=== PATIENT | female | born 1980 | race Caucasian/White ===

== ENCOUNTER 2018-12-30 15:32 | Inpatient (IN) | payer OTHER ==
[~2018-12-30] VITALS: Ht 167.6 cm; Wt 131.1 kg
[2018-12-30 16:36] VITALS: Ht 167.6 cm; Wt 131.1 kg
[2018-12-30] MEDS ORDERED: PREN-93 PO (16:37)
[2018-12-30] MEDS ORDERED: MISOPROSTOL 200 MCG TAB PR PRN (17:00)
[2018-12-30] MEDS ORDERED: OXYTOCIN 30 UNITS/LR 500 ML IV SCH (17:00)
[2018-12-30] MEDS ORDERED: OXYTOCIN 30 UNITS/LR 500 ML IV PRN (17:00)
[2018-12-30] MEDS ORDERED: CARBOPROST 250 MCG INJ IM PRN (17:00)
[2018-12-30] MEDS ORDERED: CEFAZOLIN 3 GM in DEXTROSE 5% 100 ML IV SCH (17:00)
[2018-12-30] MEDS ORDERED: METHYLERGONOVINE 0.2 MG INJ IM PRN (17:00)
[2018-12-30] MEDS: LACTATED RINGER'S 1,000 ML IV SCH ×3 (17:58→23:18)
--- NOTE | 2018-12-30 18:10 | HP ---
Date/Time of Note Date/Time of Note DATE: 12/30/18 TIME: 17:55 OB - History Hx of Present Free Text/Dictation 12/30/2018 : 4 Para: 2 Care: Limited Care Other Concerns: 38 years old with IUP at 36 weeks and 1 day with history of pre- gestational diabetes, poorly controlled, hydramnios and LGA, as well as history of x2, presented to hospital with complaint of contractions. Patient denies any leaking of fluid or vaginal bleeding or decreased movement. Has not been compliant with checking her blood sugar Patient had limited visits with multiple OB providers but was not compliant with continue care. She was admitted due to contractions. Cervical exam: Closed/long and high Patient reports had been seen in [facility] last week and had ultrasound. reports unavailable.Per patient was discharged from Dr. rabia acosta's practice due to being non compliant Patient will be admitted for observation, hydration, management of blood sugar, perinatology consultation and possible section in case of evidence of labor Patient is morbidly obese. Past Family/Social History * Past Medical, Surgical, Family and Obstetric Histories reviewed from chart. Blood Type: O+ Rubella: immune RPR/VDRL: Negative GBS Status: Unknown HBsAG: Negative OB Admission Exam Physical Exam HEENT: WNL Lungs: Clear Abdomen: WNL Reflexes: Normal Cervical Dilatation: None Effacement: 0% Station: -2 Membranes: Intact Accelerations: Accelerations Present Varibility: Moderate Contractions on Admission: < 5 Minutes Apart Intensity: Mild Last 72 hours Lab Results CBC & BMP 12/30/18 17:06 OB Assessment/Plan Other Assessment: IUP at 36 weeks and 1 day Pre-gestational diabetes, poorly controlled Polyhydramnios History of x2 Poor care Morbidly obese Contractions, patient does not appear to to be in acute distress, likely combination of dehydration and polyhydramnios Patient will be admitted in-house Keep the patient n.p.o. IV fluid hydration Management of blood sugar by insulin sliding scale Perinatology/neonatology consultation If evidence of labor, delivered by section CBC type and screen Continuous monitoring Plan of care discussed with RN and with the patient Consented for possible section in case of painful contractions Risks and benefits of section including risk for infection, bleeding, damage to adjacent structure including bowel and bladder and risks for blood transfusion including risk for blood borne infection, HIV, Hepatitis B and c and transfusion discussed. All questions were answered. Patient verbalized understanding all above risks JACKIE LUCAS MD Dec 30, 2018 18:05
[2018-12-30] MEDS ORDERED: NPH,100I5 SQ ×2 (18:30→18:33)
[2018-12-30] MEDS ORDERED: INSU100C SQ (18:34)
[2018-12-30] MEDS ORDERED: ONDANSETRON 4 MG INJ IV STA (22:12)
[2018-12-30] MEDS ORDERED: AZITHROMYCIN 500MG/NS (PMX) 250 ML IVPB ONE (22:30)
[2018-12-30] MEDS ORDERED: METOCLOPRAMIDE 10 MG INJ IV ONE (22:30)
--- NOTE | 2018-12-30 22:51 | PREAC ---
Date/Time of Note Date/Time of Note DATE: 12/30/18 TIME: 22:50 Anesthesia Eval and Record Evaluation Time Pre-Procedure Interview DATE: 12/30/18 TIME: 22:50 Age 38 Sex female NPO: 8 hrs Preoperative diagnosis Planned procedure repeat c/s Past Medical History Past Medical History: Includes GI: Morbid obesity Surgery & Anesthesia Issues No known issue Meds Anticoagulation: No Beta Yolanda within 24 hr: No Reason Beta Yolanda not given: Pt. not on B-Yolanda Reported Medications Insulin Lispro (Humalog) 100 Unit/1 Ml Cartridge, 36 UNIT SQ PC DINNER, EA 12/30/18 NPH, Human Insulin Isophane (Humulin N Kwikpen) 100 Unit/1 Ml Insuln.pen, 37 UNIT SQ PC LUNCH DINNER, EA 12/30/18 NPH, Human Insulin Isophane (Humulin N Kwikpen) 100 Unit/1 Ml Insuln.pen, 47 UNIT SQ AC A, EA 12/30/18 Vit No.124/Iron/FA ( Vitamin Tablet) 1 Each Tablet, 1 EACH PO, TAB 12/30/18 Current Medications Lactated Ringer's 1,000 ml @ 125 mls/hr Q8H IV Last administered on 12/30/18at 19:49; Admin Dose 125 MLS/HR; Start 12/30/18 at 16:56 Cefazolin Sodium 3 gm/Dextrose 100 ml @ 100 mls/hr ONCE IV ; Start 12/30/18 at 17:00 Oxytocin/Lactated Ringer's 500 ml @ 125 mls/hr POST IV ; Start 12/30/18 at 17:00 Oxytocin/Lactated Ringer's 500 ml @ 0 mls/hr ONCE PRN IV .VAGINAL BLEEDING; Start 12/30/18 at 17:00 Methylergonovine Maleate (Methergine) 0.2 mg ONCE PRN IM .VAGINAL BLEEDING; Start 12/30/18 at 17:00 Carboprost Tromethamine (Hemabate) 250 mcg ONCE PRN IM .VAGINAL BLEEDING; Start 12/30/18 at 17:00 Misoprostol (Cytotec) 1,000 mcg ONCE PRN [place] .VAGINAL BLEEDING; Start 12/30/18 at 17:00 Azithromycin 250 ml @ 250 mls/hr ONCE ONCE IVPB ; Start 12/30/18 at 22:30; Stop 12/30/18 at 23:29 Meds reviewed: Yes Allergies Coded Allergies: No Known Allergy (Unverified , 12/30/18) Allergies Reviewed: Yes Labs/Studies Labs Reviewed: Reviewed by anesthesiologist Result Diagram: 12/30/18 1706 12/30/18 1705 Laboratory Tests 12/30/18 17:05 12/30/18 17:06 Blood Bank Test 12/30/18 17:06 Antibody Screen NEGATIVE Blood Type O POSITIVE Rh Immune Globulin Candidate NO test: Positive Pre-procedure Exam Airway: Adequate mouth opening, Adequate thyromental dist Mallampati: Mallampati II Teeth: Normal Lung: Normal Heart: Normal ASA Physical Status ASA physical status: 2 Emergency: None Planned Anesthetic Neuraxial: Spinal Planned Pain Management Sub-arachniod narcotics Pre-operative Attestations Prior to commencing anesthesia and surgery, the patient was re-evaluated, there was verification of: *The patient's identity *The results of appropriate recent lab work and preoperative vital signs *The above evaluation not changing prior to induction *Anesthetic plan, risk benefits, alternative and complications discussed with patient/family; questions answered; patient/family understands, accepts and wishes to proceed. HUGH CANTU Dec 30, 2018 22:51
[2018-12-30] MEDS ORDERED: ALBUTEROL 0.083% (NEB) 2.5 MG/3 ML AMP HHN PRN (23:00)
[2018-12-30] MEDS ORDERED: HYDROmorphONE 0.5 MG/0.5 ML SYG IV PRN (23:00)
[2018-12-30] MEDS ORDERED: ONDANSETRON 4 MG INJ IV PRN ×2 (23:00)
[2018-12-30] MEDS ORDERED: FENTAnyl 50 MCG/ML VIAL IV PRN ×2 (23:00)
[2018-12-30] MEDS ORDERED: NALOXONE (0.4 MG/ML) INJ IV PRN (23:00)
[2018-12-30] MEDS ORDERED: DIPHENHYDRAMINE 50 MG INJ IV PRN ×2 (23:00)
[2018-12-30] MEDS ORDERED: METOCLOPRAMIDE 10 MG INJ IV PRN (23:00)
[2018-12-30] MEDS ORDERED: HYDROmorphONE 1 MG/5 ML IV SYRINGE IV PRN ×3 (23:00)
[2018-12-30] MEDS ORDERED: KETOROLAC 30 MG INJ IV PRN (23:00)
--- NOTE | 2018-12-31 02:26 | PAC ---
Date/Time of Note Date/Time of Note DATE: 12/31/18 TIME: 02:26 Post-Anesthesia Notes Post-Anesthesia Note Activity: WNL Respiratory function: WNL Cardiovascular function: WNL Mental status: Baseline Pain reasonably controlled: Yes Hydration appropriate: Yes Nausea/Vomiting absent: Yes HUGH ACNTU Dec 31, 2018 02:26
--- NOTE | 2018-12-31 02:33 | OPPN ---
Date/Time of Note Date/Time of Note DATE: 12/31/18 TIME: 02:23 Operative Report Planned Procedure Procedure date Dec 31, 2018 Procedure(s) RLTC/S lysis of adhesion Performed by see signature line Burn Table Operator: JENARO TREVIÑO MD 2nd Burn Table Operator none Anesthesiologist: HUGH CANTU Pre-procedure diagnosis [id number] with x2 previous c/s in labor GDM [id number] Anesthesia Type: Erkod3b spinal Post-Procedure Post-procedure diagnosis same as above deliveredpreterm normal female Findings Live Baby [f], Apgars [8 ] and 9[], weight 9lb 13oz[], position lot [], [vx] presentation none[]cord. Estimated Blood Loss: 500 - 600 mls Specimen(s) none Grafts/Implant(s) none Complication(s) none FREDERICK WALKER MD Dec 31, 2018 02:33
[2018-12-31] MEDS ORDERED: LACTATED RINGER'S 1,000 ML IV SCH (04:58)
[2018-12-31 05:00] VITALS: BP 135/72; PULSE 59; RESP 18
[2018-12-31] MEDS ORDERED: ZOLPIDEM 5 MG TAB PO PRN (05:00)
[2018-12-31] MEDS ORDERED: OXYTOCIN 30 UNITS/LR 500 ML IV PRN (05:00)
[2018-12-31] MEDS ORDERED: METHYLERGONOVINE 0.2 MG INJ IM PRN (05:00)
[2018-12-31] MEDS ORDERED: CARBOPROST 250 MCG INJ IM PRN (05:00)
[2018-12-31] MEDS ORDERED: LANOLIN HPA 1 PKT TOP PRN (05:00)
[2018-12-31] MEDS ORDERED: DIPHENHYDRAMINE 50 MG INJ IV PRN (05:00)
[2018-12-31] MEDS ORDERED: ONDANSETRON 4 MG INJ IV PRN (05:00)
[2018-12-31] MEDS ORDERED: MISOPROSTOL 200 MCG TAB PR PRN (05:00)
[2018-12-31 06:00] VITALS: BP 132/72; PULSE 65; RESP 20
--- NOTE | 2018-12-31 07:52 | OPR ---
DATE OF OPERATION: 12/31/2018 PREOPERATIVE DIAGNOSES: 36 weeks 1 day with 2 previous sections, in labor, and GD M. POSTOPERATIVE DIAGNOSES: 36 weeks 1 day with 2 previous sections, in labor, and G DM. Delivered normal macrosomic female . Omental adhesion. OPERATION PERFORMED: Repeat low transverse section, lysis of adhesion. ANESTHESIOLOGIST: Remy Johnson M.D. SURGEON: Jon Rodriguez M.D. BILL CLERK: Dr. Meyres ESTIMATED BLOOD LOSS: Approximately 600 mL. FINAL SPONGE COUNT: Correct. PROCEDURE: Under proper induction of spinal anesthesia, the patient was placed in the frog position. Duncan catheter was introduced under sterile condition, repositioned to supine. Abdominal wall was prepped and draped in usual aseptic manner. A transverse incision was made along the previous incisi onal scar and incision was carried down through the subcutaneous tissue to the anterior recti fascia, which was incised transversely in length of the incision. Fascial flap was created by blunt and sha rp dissection cephalad and then 2 rectus muscles split and peritoneal cavity was entered. Upon enter ing the peritoneal cavity, there were some omental adhesion noted on the parietal peritoneum, which w as initially pushed away and the low portion of uterus was exposed and found to be vertex presentatio n. An incision was made above the uterovesical reflection layer by layer, reached the amniotic membr ane, which was ruptured to reveal severe polyhydramnios gushed out clear fluid and normal fem smitha was born from the left occiput transverse position. Mouth and nose were cleaned and delayed clam ping done and cut, handed to the respiratory care personnel for further care. Cord blood was obtaine d. Placenta was removed manually. Uterus was exteriorized and cavity was completely cleaned. Uteri ne incision was closed using #1 chromic catgut in continuous manner, second layer using 0 chromic cat gut in continuous manner. No bleeding noted. After irrigation done, sponge count correct. Uterus w as relocated into the abdominal cavity. Incisional site rechecked, which was intact. Final sponge c ount correct and parietal peritoneum was closed using 0 chromic catgut in continuous manner, muscle c losed with 0 chromic catgut in continuous manner. Fascia closed with a #1 Vicryl in continuous hugh r in 2 segments after the piece of Surgicel was laid under the fascia. Subcutaneous tissue irrigated with water. This layer was approximated with a 2-0 plain in 2 layers and skin closed with a 3-0 Mon ocryl in subcuticular manner. Additional simple stitches were placed because of the body habitus, it was difficult to close. Pressure dressing applied. Estimated blood loss was approximately 600 mL. The patient withstood procedure well and was sent to the recovery room in stable condition. Dictated By: JON LU/CAROLINA Conf#: [id number] DID#: [id number] CC: JACKIE LUCAS MD;*End*
[2018-12-31] MEDS: SENNA/DOCUSATE NA (8.6MG/50MG) TAB PO SCH ×2 (08:08→21:10)
[2018-12-31] MEDS: KETOROLAC 30 MG INJ IV PRN ×3 (08:09→22:58)
[2018-12-31 08:30] VITALS: BP 128/75; PULSE 70; RESP 16
[2018-12-31 12:30] VITALS: BP 130/74; PULSE 68; RESP 16
[2018-12-31] MEDS: HYDROmorphONE 0.5 MG/0.5 ML SYG IV PRN ×2 (12:52→22:03)
[2018-12-31 15:00] VITALS: BP 127/60; PULSE 73; RESP 16
[2018-12-31] MEDS: LACTATED RINGER'S 1,000 ML IV SCH ×2 (15:12→22:30)
[2018-12-31 20:30] VITALS: BP 114/53; PULSE 78; RESP 17
[2018-12-31] MEDS: INSULIN ASPART [NOVOLOG] 3 ML PEN SC SCH (22:55)
[2018-12-31] MEDS ORDERED: DEXTROSE 50% 50 ML SYRINGE IV PRN ×2 (23:00)
[2018-12-31] MEDS ORDERED: GLUCAGON 1 MG INJ IM PRN (23:00)
[2018-12-31] MEDS ORDERED: GLUCOSE GEL 15 GRAM TUBE BUCCAL PRN (23:00)
[2018-12-31] MEDS ORDERED: OXYCODONE/ACETAMINOPHEN (5/325) TAB PO PRN (23:00)
[2018-12-31] MEDS ORDERED: GLUCOSE GEL 15 GRAM TUBE PO PRN ×2 (23:00)
[2019-01-01 03:55] VITALS: BP 132/78; PULSE 73; RESP 17
[2019-01-01] MEDS: OXYCODONE/ACETAMINOPHEN (5/325) TAB PO PRN ×2 (04:22→11:17)
[2019-01-01] MEDS: IBUPROFEN 600 MG TAB PO SCH ×3 (05:55→11:17)
[2019-01-01 08:00] VITALS: BP 119/58; PULSE 76; RESP 17
[2019-01-01] MEDS ORDERED: INSULIN ASPART [NOVOLOG] 3 ML PEN SC SCH (08:05)
[2019-01-01] MEDS: INSULIN ASPART [NOVOLOG] 3 ML PEN SC SCH ×4 (08:05→20:47)
[2019-01-01] MEDS: SENNA/DOCUSATE NA (8.6MG/50MG) TAB PO SCH ×2 (09:09→20:43)
[2019-01-01 16:30] VITALS: BP 126/58; PULSE 71; RESP 18
[2019-01-01] MEDS ORDERED: OXYCODONE/ACETAMINOPHEN (10/325) TAB PO SCH (17:00)
--- NOTE | 2019-01-01 17:14 | PN ---
Date/Time of Note Date/Time of Note DATE: 01/01/19 TIME: 17:09 OB Subjective Subjective Subjective Patient reports feeling burning pain in the incision of the . Had passed flatus. Ambulating. Started breast-feeding. Baby is in NICU. Patient ambulating and going to the NICU to visit the baby and at times using wheelchair as well. Vaginal bleeding decreased denies any shortness of breath, chest pain, nausea, vomiting,. Dizziness, lightheadedness Tolerated p.o. is on insulin sliding scale OB Objective Objective Objective General appearance: Alert and oriented x4, appears to be in mild to moderate distress due to incisional pain Abdomen: Soft, obese, appropriate tenderness in the incision. Incision with no evidence of infection, drainage, hematoma Lungs: Clear to auscultation bilaterally CV: RRR Extremities: 2+ bilateral symmetric lower extremity edema, no cord palpable, negative Homans sign Small skin abrasion on the left thigh about 2 cm x 2 cm related to recent removing of dressing by nursing staff noted. No evidence of infection. Had been covered with tape CBC & BMP 12/30/18 17:05 12/30/18 17:06 12/31/18 04:30 01/01/19 08:21 Liver Function Test 12/31/18 04:30 Alanine Aminotransferase (ALT/SGPT) 22 Albumin 2.6 L Alkaline Phosphatase 158 H Aspartate Amino Transf (AST/SGOT) 32 Direct Bilirubin 0.00 Total Protein 5.6 L VS - Last 72 Hours, by Label Date Temp Pulse Resp B/P (MAP) Pulse Ox O2 O2 Flow FiO2 Time Delivery Rate 01/01/19 98.1 76 17 119/58 Room Air 08:00 (78) 01/01/19 98.3 73 17 132/78 Room Air 03:55 (96) 12/31/18 98.4 78 17 114/53 Room Air 20:30 (73) 12/31/18 98.2 73 16 127/60 94 Room Air 15:00 (82) 12/31/18 97.9 68 16 130/74 96 Room Air 12:30 (92) 12/31/18 98.3 70 16 128/75 94 Room Air 08:30 (92) 12/31/18 65 20 132/72 Room Air 06:00 (92) 12/31/18 98.3 59 18 135/72 97 Room Air 05:00 (93) OB Assessment/Plan Other Assessment: Post repeat section due to contractions Polyhydramnios and LGA due to poorly controlled diabetes Patient has been noncompliant. U tox negative Blood sugar currently been optimized with insulin Sliding Scale Patient had been prior to on insulin regimen. status post nutrition consultation. And 2000 ADA diet Management of blood sugar by insulin sliding scale Start on Metformin thousand milligrams p.o. twice daily Routine postop care JACKIE LUCAS MD Jan 01, 2019 17:14
[2019-01-01] MEDS: IBUPROFEN 600 MG TAB PO PRN ×2 (17:34→22:50)
[2019-01-01] MEDS: metFORMIN 500 MG TAB PO SCH (18:41)
[2019-01-01 20:00] VITALS: BP 134/84; PULSE 83; RESP 18
[2019-01-01] MEDS: DOCUSATE SODIUM 100 MG CAP PO SCH (20:43)
[2019-01-01] MEDS: SILVER SULFADIAZINE 1% 25 GM CR TOP SCH ×2 (21:48→22:50)
[2019-01-02] MEDS: OXYCODONE/ACETAMINOPHEN (10/325) TAB PO SCH ×4 (02:13→19:51)
[2019-01-02 04:30] VITALS: BP 128/59; PULSE 63; RESP 18
[2019-01-02] MEDS: IBUPROFEN 600 MG TAB PO PRN ×2 (04:33→19:27)
[2019-01-02] MEDS: INSULIN ASPART [NOVOLOG] 3 ML PEN SC SCH ×4 (08:05→21:48)
[2019-01-02] MEDS: SILVER SULFADIAZINE 1% 25 GM CR TOP SCH ×3 (08:31→21:18)
[2019-01-02] MEDS: metFORMIN 500 MG TAB PO SCH ×2 (08:32→18:32)
[2019-01-02] MEDS: SENNA/DOCUSATE NA (8.6MG/50MG) TAB PO SCH ×2 (08:32→21:34)
[2019-01-02] MEDS: DOCUSATE SODIUM 100 MG CAP PO SCH ×2 (08:38→21:18)
--- NOTE | 2019-01-02 12:48 | CONS ---
Assessment/Plan Assessment/Plan Assessment/Plan (Daily) 38 yo morbidly obese woman with type II diabetes, very hyperglycemic during , now . #Diabetes - Anticipate decreased insulin requirements after , but the patient dropped from more than 100 units daily to now <10 units sliding scale. - I agree with current regimen of metformin 500 BID plus sliding scale insulin. - Metformin can be slowly titrated up to a maximum of 850mg TID. Stop increasing if patient develops abdominal bloating and diarrhea. - If sliding scale requirements remain high, will consider resuming glargine or other long-acting insulin. #Morbid obesity - I am concerned about this patient's perception of food. This morning she ate scrambled eggs and toast for breakfast. But on my interview she kept asking when she'll be allowed to have a "normal meal". - I will consult Yvette the peer educator to discuss proper nutrition and portion control. For now, internal medicine will sign off and I will have Dr. Isaacs's endocrine group follow this patient while in house. Consultation Date/Type/Reason Admit Date/Time Dec 30, 2018 at 16:18 Date of Consultation: Jan 02, 2019 Type of Consult Internal Medicine Reason for Consultation Diabetes management Requesting Provider: JACKIE LUCAS MD Date/Time of Note DATE: 01/02/19 TIME: 12:30 Hx of Present Illness Ms. Schwab is a pleasant 38yo woman who presented to the hospital on 12/30 at 36 weeks and 1 day in labor. She is now status post C section on 12/31. Internal Medicine was consulted for diabetes management. Prior to this , the patient reports that she was on lantus 15 units daily and sliding scale glulisine with meals. During the she developed severe hyperglycemia and ended up requiring humalin N 47 units qAM and 37 unit qPM; plus humalin R 34 units BID. This totals more than 100u daily. However now after delivery, the patient has minimal sliding scale insulin requirements (<10 units daily) despite having good appetite and tolerating consistent carbohydrate diet. She is currently on metformin 500 BID. 12 point review of systems done, negative except per HPI. Past Medical History type II diabetes Home Meds Reported Medications Insulin Lispro (Humalog) 100 Unit/1 Ml Cartridge, 36 UNIT SQ PC DINNER, EA 12/30/18 NPH, Human Insulin Isophane (Humulin N Kwikpen) 100 Unit/1 Ml Insuln.pen, 37 UNIT SQ PC LUNCH DINNER, EA 12/30/18 NPH, Human Insulin Isophane (Humulin N Kwikpen) 100 Unit/1 Ml Insuln.pen, 47 UNIT SQ AC A, EA 12/30/18 Vit No.124/Iron/FA ( Vitamin Tablet) 1 Each Tablet, 1 EACH PO, TAB 12/30/18 Medications Current Medications Simethicone (Mylicon) 160 mg Q8H PRN PO .GAS Last administered on 01/01/19at 09:10; Admin Dose 160 MG; Start 12/31/18 at 05:00 Senna/Docusate Sodium (Senokot-S) 1 tab BID PO Last administered on 01/02/19 08:32; Admin Dose 1 TAB; Start 12/31/18 at 09:00 Lanolin (Lanolin Hpa) 1 applic BEDSIDE MEDICATION PRN TOP .NIPPLES Last administered on 01/01/19 09:10; Admin Dose 1 APPLIC; Start 12/31/18 at 05:00 Diphtheria/ Tetanus/Acell Pertussis (Adacel) 0.5 ml ONCE ONCE IM* ; Start 01/03/19 at 09:00; Stop 01/03/19 at 09:01 Oxytocin/Lactated Ringer's 500 ml @ 0 mls/hr ONCE PRN IV .VAGINAL BLEEDING; Start 12/31/18 at 05:00 Methylergonovine Maleate (Methergine) 0.2 mg ONCE PRN IM .VAGINAL BLEEDING; Start 12/31/18 at 05:00 Carboprost Tromethamine (Hemabate) 250 mcg ONCE PRN IM .VAGINAL BLEEDING; Start 12/31/18 at 05:00 Misoprostol (Cytotec) 1,000 mcg ONCE PRN [place] .VAGINAL BLEEDING; Start 12/31/18 at 05:00 Diphenhydramine HCl (Benadryl) 25 mg Q6H PRN IV PRURITUS; Start 12/31/18 at 05:00 Ondansetron HCl (Zofran Inj) 4 mg Q6H PRN IV NAUSEA AND/OR VOMITING; Start 12/31/18 at 05:00 Zolpidem Tartrate (Ambien) 10 mg QHS PRN PO INSOMNIA; Start 12/31/18 at 05:00 Insulin Aspart (Novolog Insulin Pen) NOVOLOG *MODERATE* ALGORITHM WITH MEALS BEDTIME SC Last administered on 01/01/19at 20:47; Admin Dose 1 UNIT; Start 12/31/18 at 22:30 Miscellaneous Information 1 ea NOTE XX ; Start 12/31/18 at 23:00 Glucose (Glutose) 15 gm Q15M PRN PO DECREASED GLUCOSE; Start 12/31/18 at 23:00 Glucose (Glutose) 22.5 gm Q15M PRN PO DECREASED GLUCOSE; Start 12/31/18 at 23:00 Dextrose (D50w Syringe) 25 ml Q15M PRN IV DECREASED GLUCOSE; Start 12/31/18 at 23:00 Dextrose (D50w Syringe) 50 ml Q15M PRN IV DECREASED GLUCOSE; Start 12/31/18 at 23:00 Glucagon (Glucagen) 1 mg Q15M PRN IM DECREASED GLUCOSE; Start 12/31/18 at 23:00 Glucose (Glutose) 15 gm Q15M PRN BUCCAL DECREASED GLUCOSE; Start 12/31/18 at 23:00 Docusate Sodium (Colace) 100 mg BID PO Last administered on 01/02/19at 08:38; Admin Dose 100 MG; Start 01/01/19 at 21:00 Ibuprofen (Motrin) 600 mg Q4 PRN PO PAIN Last administered on 01/02/19at 04:33; Admin Dose 600 MG; Start 01/01/19 at 17:00 Metformin HCl (Glucophage) 500 mg BID WITH MEALS PO Last administered on 01/02/19 08:32; Admin Dose 500 MG; Start 01/01/19 at 18:05 Silver Sulfadiazine (Thermazene 1% 25 Gm) 1 applic TID TOP Last administered on 01/02/19at 08:31; Admin Dose 1 APPLIC; Start 01/01/19 at 21:00 Oxycodone/ Acetaminophen (Endocet (10/ 325)) 1 tab Q6H PO Last administered on 01/02/19 08:32; Admin Dose 1 TAB; Start 01/02/19 at 02:00 Allergies: Coded Allergies: No Known Allergy (Unverified , 12/30/18) Past Surgical History L flank spider bite. C section 12/31 Social History Alcohol Use: none Smoking Status: Never smoker Drug Use: none Exam/Review of Systems Exam Vitals Vital Signs Date Temp Pulse Resp B/P (MAP) Pulse Ox O2 O2 Flow FiO2 Time Delivery Rate 01/02/19 98.0 63 18 128/59 Room Air 04:30 (82) 12/31/18 94 15:00 Intake and Output 01/01/19 01/01/19 01/02/19 1515:00 23:00 07:00 OutputOutput Total 700 ml BalanceBalance -700 ml Exam Gen: Morbidly obese woman ambulatory in no acute distress. Eyes: PERRL, no icterus HEENT: Moist mucous membranes, clear oropharynx Neck: Supple, no lymphadenopathy Card: Regular rate and rhythm, no murmurs Pulm: Clear to auscultation bilaterally Abd: Morbidly obese, soft, mildly tender to palpation throughout. Fresh C section incision. Ext: Nonpitting lower extremity edema. Skin: warm, dry, well perfused. Results Result Diagram: 01/01/19 0821 12/31/18 0430 Results 24hrs Laboratory Tests Test 01/01/19 16:48 01/01/19 20:39 01/02/19 02:12 01/02/19 08:26 Bedside Glucose 152 219 160 138 Medications Medication Current Medications Simethicone (Mylicon) 160 mg Q8H PRN PO .GAS Last administered on 01/01/19at 09:10; Admin Dose 160 MG; Start 12/31/18 at 05:00 Senna/Docusate Sodium (Senokot-S) 1 tab BID PO Last administered on 01/02/19at 08:32; Admin Dose 1 TAB; Start 12/31/18 at 09:00 Lanolin (Lanolin Hpa) 1 applic BEDSIDE MEDICATION PRN TOP .NIPPLES Last administered on 01/01/19at 09:10; Admin Dose 1 APPLIC; Start 12/31/18 at 05:00 Diphtheria/ Tetanus/Acell Pertussis (Adacel) 0.5 ml ONCE ONCE IM* ; Start 01/03/19 at 09:00; Stop 01/03/19 at 09:01 Oxytocin/Lactated Ringer's 500 ml @ 0 mls/hr ONCE PRN IV .VAGINAL BLEEDING; S tart 12/31/18 at 05:00 Methylergonovine Maleate (Methergine) 0.2 mg ONCE PRN IM .VAGINAL BLEEDING; S tart 12/31/18 at 05:00 Carboprost Tromethamine (Hemabate) 250 mcg ONCE PRN IM .VAGINAL BLEEDING; Start 12/31/18 at 05:00 Misoprostol (Cytotec) 1,000 mcg ONCE PRN [place] .VAGINAL BLEEDING; Start 12/31/18 at 05:00 Diphenhydramine HCl (Benadryl) 25 mg Q6H PRN IV PRURITUS; Start 12/31/18 at 05:00 Ondansetron HCl (Zofran Inj) 4 mg Q6H PRN IV NAUSEA AND/OR VOMITING; Start 12/31/18 at 05:00 Zolpidem Tartrate (Ambien) 10 mg QHS PRN PO INSOMNIA; Start 12/31/18 at 05:00 Insulin Aspart (Novolog Insulin Pen) NOVOLOG *MODERATE* ALGORITHM WITH MEALS BEDTIME SC Last administered on 01/01/19at 20:47; Admin Dose 1 UNIT; Start 12/31/18 at 22:30 Miscellaneous Information 1 ea NOTE XX ; Start 12/31/18 at 23:00 Glucose (Glutose) 15 gm Q15M PRN PO DECREASED GLUCOSE; Start 12/31/18 at 23:00 Glucose (Glutose) 22.5 gm Q15M PRN PO DECREASED GLUCOSE; Start 12/31/18 at 23:00 Dextrose (D50w Syringe) 25 ml Q15M PRN IV DECREASED GLUCOSE; Start 12/31/18 at 23:00 Dextrose (D50w Syringe) 50 ml Q15M PRN IV DECREASED GLUCOSE; Start 12/31/18 at 23:00 Glucagon (Glucagen) 1 mg Q15M PRN IM DECREASED GLUCOSE; Start 12/31/18 at 23:00 Glucose (Glutose) 15 gm Q15M PRN BUCCAL DECREASED GLUCOSE; Start 12/31/18 at 23:00 Docusate Sodium (Colace) 100 mg BID PO Last administered on 01/02/19at 08:38; Admin Dose 100 MG; Start 01/01/19 at 21:00 Ibuprofen (Motrin) 600 mg Q4 PRN PO PAIN Last administered on 01/02/19at 04:33; Admin Dose 600 MG; Start 01/01/19 at 17:00 Metformin HCl (Glucophage) 500 mg BID WITH MEALS PO Last administered on 01/02/19at 08:32; Admin Dose 500 MG; Start 01/01/19 at 18:05 Silver Sulfadiazine (Thermazene 1% 25 Gm) 1 applic TID TOP Last administered on 01/02/19at 08:31; Admin Dose 1 APPLIC; Start 01/01/19 at 21:00 Oxycodone/ Acetaminophen (Endocet (10 325)) 1 tab Q6H PO Last administered on 01/02/19at 08:32; Admin Dose 1 TAB; Start 01/02/19 at 02:00 YASIR MODI MD Jan 02, 2019 12:44
[2019-01-02 15:50] VITALS: BP 136/81; PULSE 75; RESP 18
[2019-01-02 19:51] VITALS: BP 137/71; PULSE 83; RESP 18
[2019-01-03] MEDS: OXYCODONE/ACETAMINOPHEN (10/325) TAB PO SCH ×3 (03:10→14:07)
[2019-01-03 04:00] VITALS: BP 120/63; PULSE 67; RESP 18
[2019-01-03] MEDS: IBUPROFEN 600 MG TAB PO PRN (05:23)
[2019-01-03] MEDS: INSULIN ASPART [NOVOLOG] 3 ML PEN SC SCH ×2 (08:05→11:50)
[2019-01-03] MEDS: SENNA/DOCUSATE NA (8.6MG/50MG) TAB PO SCH (08:35)
[2019-01-03] MEDS: DOCUSATE SODIUM 100 MG CAP PO SCH (08:35)
[2019-01-03] MEDS: metFORMIN 500 MG TAB PO SCH (08:36)
[2019-01-03 08:45] VITALS: BP 132/68; PULSE 71; RESP 20
[2019-01-03] MEDS ORDERED: DIPHTH/TET/ACEL PERTUSS (ADULT) 0.5 ML VIAL IM* ONE (09:00)
[2019-01-03] MEDS: SILVER SULFADIAZINE 1% 25 GM CR TOP SCH ×2 (09:51→14:07)
--- NOTE | 2019-01-03 13:38 | QN ---
Documentation Comment Late Entry Note POD# 2 +BM No VB +Voids VS stable Gen NAD Abd soft NT ND Incision intact --->Discharge plan tomorrow KATALINA YOUNG M.D. Jan 03, 2019 13:38
--- NOTE | 2019-01-03 13:39 | QN ---
Documentation Comment POD#3 +BM No VB +Voids VS stable Gen NAD Abd soft NT ND Incision intact --->Discharge plan --->Questions answered -->F/u in2 weeks in clinic KATALINA YOUNG M.D. Jan 03, 2019 13:39
--- NOTE | 2019-01-03 13:40 | DS ---
Date/Time of Note Date/Time of Note DATE: 01/03/19 TIME: 13:39 Discharge Summary Admission/Discharge Info Admit Date/Time Dec 30, 2018 at 16:18 Discharge Date/Time 01/03/2019 Discharge Diagnosis Patient Condition: Good Hospital Course uneventful Home Meds Reported Medications Insulin Lispro (Humalog) 100 Unit/1 Ml Cartridge, 36 UNIT SQ PC DINNER, EA 12/30/18 NPH, Human Insulin Isophane (Humulin N Kwikpen) 100 Unit/1 Ml Insuln.pen, 37 UNIT SQ PC LUNCH DINNER, EA 12/30/18 NPH, Human Insulin Isophane (Humulin N Kwikpen) 100 Unit/1 Ml Insuln.pen, 47 UNIT SQ AC A, EA 12/30/18 Vit No.124/Iron/FA ( Vitamin Tablet) 1 Each Tablet, 1 EACH PO, TAB 12/30/18 Primary Care Provider Not On Staff Doctor Pending Labs Laboratory Tests Test 01/02/19 15:27 01/02/19 18:37 01/02/19 21:37 01/03/19 08:34 Bedside 127 114 192 108 Glucose mg/dL (70-220) mg/dL (70-220) mg/dL (70-220) mg/dL (70-220) Test 01/03/19 11:10 Bedside 125 Glucose mg/dL (70-220) KATALINA YOUNG M.D. Jan 03, 2019 13:40
--- NOTE | 2019-01-03 14:06 | CONS ---
Assessment/Plan Assessment/Plan Problems: (1) Diabetes mellitus type 2 in obese Status: Chronic Comment: I would actually go ahead and try her on metformin alone we can bring back on insulin. Her primary care physician is the group at [facility] center is at the [place] office. For now would recommend metformin 850 twice daily and following her up as an outpatient. (2) Obesity (BMI 30-39.9) Status: Chronic Comment: Counseled natural history of insulin resistance syndrome and the effects of weight both as positive or as a negative depending upon point of view (3) Status post Onset Date: ~ 12/31/2018 Status: Acute Comment: As per Dr. Tamez. Consultation Date/Type/Reason Admit Date/Time Dec 30, 2018 at 16:18 Date of Consultation: Jan 03, 2019 Type of Consult Endocrinology Reason for Consultation Diabetes mellitus type 2 seen . Requesting Provider: JACKIE LUCAS MD Date/Time of Note DATE: 01/03/19 TIME: 14:02 Hx of Present Illness 38-year-old female Ab1 by December 31, 2018. This was her third . She had a prior history of pre- existing diabetes mellitus type 2 in the setting of obesity. She had during her prior been transitioned from metformin based therapy to purely insulin based therapy. She was on Lantus and NovoLog cover when she became that was changed to NPH with Humalog based on insurance coverage. She has not enjoyed particularly glycemic control and delivered at 36 weeks and 1day. At this time she reports she is doing well. She has not been receiving insulin is on metformin only and actually appears to have good blood sugar control with a controlled diet in a controlled setting. Constitutional: no complaints Eyes: no complaints ENT: no complaints Respiratory: no complaints Cardiovascular: no complaints Gastrointestinal: pain Genitourinary: no complaints Past Medical History Medical History: diabetes (Type II), other (Obesity) Home Meds Reported Medications Insulin Lispro (Humalog) 100 Unit/1 Ml Cartridge, 36 UNIT SQ PC DINNER, EA 12/30/18 NPH, Human Insulin Isophane (Humulin N Kwikpen) 100 Unit/1 Ml Insuln.pen, 37 UNIT SQ PC LUNCH DINNER, EA 12/30/18 NPH, Human Insulin Isophane (Humulin N Kwikpen) 100 Unit/1 Ml Insuln.pen, 47 UNIT SQ AC A, EA 12/30/18 Vit No.124/Iron/FA ( Vitamin Tablet) 1 Each Tablet, 1 EACH PO, TAB 12/30/18 Medications Current Medications Simethicone (Mylicon) 160 mg Q8H PRN PO .GAS Last administered on 01/02/19at 19:27; Admin Dose 160 MG; Start 12/31/18 at 05:00 Senna/Docusate Sodium (Senokot-S) 1 tab BID PO Last administered on 01/03/19at 08:35; Admin Dose 1 TAB; Start 12/31/18 at 09:00 Lanolin (Lanolin Hpa) 1 applic BEDSIDE MEDICATION PRN TOP .NIPPLES Last a dministered on 01/01/19at 09:10; Admin Dose 1 APPLIC; Start 12/31/18 at 05:00 Oxytocin/Lactated Ringer's 500 ml @ 0 mls/hr ONCE PRN IV .VAGINAL BLEEDING; Start 12/31/18 at 05:00 Methylergonovine Maleate (Methergine) 0.2 mg ONCE PRN IM .VAGINAL BLEEDING; Start 12/31/18 at 05:00 Carboprost Tromethamine (Hemabate) 250 mcg ONCE PRN IM .VAGINAL BLEEDING; Start 12/31/18 at 05:00 Misoprostol (Cytotec) 1,000 mcg ONCE PRN ME .VAGINAL BLEEDING; Start 12/31/18 at 05:00 Diphenhydramine HCl (Benadryl) 25 mg Q6H PRN IV PRURITUS; Start 12/31/18 at 05:00 Ondansetron HCl (Zofran Inj) 4 mg Q6H PRN IV NAUSEA AND/OR VOMITING; Start 12/31/18 at 05:00 Zolpidem Tartrate (Ambien) 10 mg QHS PRN PO INSOMNIA; Start 12/31/18 at 05:00 Insulin Aspart (Novolog Insulin Pen) NOVOLOG *MODERATE* ALGORITHM WITH MEALS BEDTIME SC Last administered on 01/02/19at 21:48; Admin Dose 1 UNIT; Start 12/31/18 at 22:30 Miscellaneous Information 1 ea NOTE XX ; Start 12/31/18 at 23:00 Glucose (Glutose) 15 gm Q15M PRN PO DECREASED GLUCOSE; Start 12/31/18 at 23:00 Glucose (Glutose) 22.5 gm Q15M PRN PO DECREASED GLUCOSE; Start 12/31/18 at 23:00 Dextrose (D50w Syringe) 25 ml Q15M PRN IV DECREASED GLUCOSE; Start 12/31/18 at 23:00 Dextrose (D50w Syringe) 50 ml Q15M PRN IV DECREASED GLUCOSE; Start 12/31/18 at 23:00 Glucagon (Glucagen) 1 mg Q15M PRN IM DECREASED GLUCOSE; Start 12/31/18 at 23:00 Glucose (Glutose) 15 gm Q15M PRN BUCCAL DECREASED GLUCOSE; Start 12/31/18 at 23:00 Docusate Sodium (Colace) 100 mg BID PO Last administered on 01/03/19at 08:35; Admin Dose 100 MG; Start 01/01/19 at 21:00 Ibuprofen (Motrin) 600 mg Q4 PRN PO PAIN Last administered on 01/03/19at 05:23; Admin Dose 600 MG; Start 01/01/19 at 17:00 Metformin HCl (Glucophage) 500 mg BID WITH MEALS PO Last administered on 01/03/19 08:36; Admin Dose 500 MG; Start 01/01/19 at 18:05 Silver Sulfadiazine (Thermazene 1% 25 Gm) 1 applic TID TOP Last administered on 01/03/19at 09:51; Admin Dose 1 APPLIC; Start 01/01/19 at 21:00 Oxycodone/ Acetaminophen (Endocet (10/ 325)) 1 tab Q6H PO Last administered on 01/03/19 08:36; Admin Dose 1 TAB; Start 01/02/19 at 02:00 Allergies: Coded Allergies: No Known Allergy (Unverified , 12/30/18) Past Surgical History Past Surgical Hx: other (Status post 3 C-sections) Family History Significant Family History: diabetes Social History Alcohol Use: none Smoking Status: Never smoker Drug Use: none Exam/Review of Systems Exam Vitals Vital Signs Date Temp Pulse Resp B/P (MAP) Pulse Ox O2 O2 Flow FiO2 Time Delivery Rate 01/03/19 98.0 71 20 132/68 Room Air 08:45 (89) 12/31/18 94 15:00 Constitutional: alert, oriented Respiratory: clear to auscultation, normal air movement Cardiovascular: regular rate and rhythm, nl pulses Gastrointestinal: soft, nl liver, spleen, non-tender Extremities: normal pulses Results Result Diagram: 01/01/19 0821 12/31/18 0430 Results 24hrs Laboratory Tests Test 01/02/19 15:27 01/02/19 18:37 01/02/19 21:37 01/03/19 08:34 Bedside Glucose 127 114 192 108 Test 01/03/19 11:10 Bedside Glucose 125 Medications Medication Current Medications Simethicone (Mylicon) 160 mg Q8H PRN PO .GAS Last administered on 01/02/19at 19:27; Admin Dose 160 MG; Start 12/31/18 at 05:00 Senna/Docusate Sodium (Senokot-S) 1 tab BID PO Last administered on 01/03/19 08:35; Admin Dose 1 TAB; Start 12/31/18 at 09:00 Lanolin (Lanolin Hpa) 1 applic BEDSIDE MEDICATION PRN TOP .NIPPLES Last administered on 01/01/19 09:10; Admin Dose 1 APPLIC; Start 12/31/18 at 05:00 Oxytocin/Lactated Ringer's 500 ml @ 0 mls/hr ONCE PRN IV .VAGINAL BLEEDING; Start 12/31/18 at 05:00 Methylergonovine Maleate (Methergine) 0.2 mg ONCE PRN IM .VAGINAL BLEEDING; Start 12/31/18 at 05:00 Carboprost Tromethamine (Hemabate) 250 mcg ONCE PRN IM .VAGINAL BLEEDING; Start 12/31/18 at 05:00 Misoprostol (Cytotec) 1,000 mcg ONCE PRN ME .VAGINAL BLEEDING; Start 12/31/18 at 05:00 Diphenhydramine HCl (Benadryl) 25 mg Q6H PRN IV PRURITUS; Start 12/31/18 at 05:00 Ondansetron HCl (Zofran Inj) 4 mg Q6H PRN IV NAUSEA AND/OR VOMITING; Start 12/31/18 at 05:00 Zolpidem Tartrate (Ambien) 10 mg QHS PRN PO INSOMNIA; Start 12/31/18 at 05:00 Insulin Aspart (Novolog Insulin Pen) NOVOLOG *MODERATE* ALGORITHM WITH MEALS BEDTIME SC Last administered on 01/02/19at 21:48; Admin Dose 1 UNIT; Start 12/31/18 at 22:30 Miscellaneous Information 1 ea NOTE XX ; Start 12/31/18 at 23:00 Glucose (Glutose) 15 gm Q15M PRN PO DECREASED GLUCOSE; Start 12/31/18 at 23:00 Glucose (Glutose) 22.5 gm Q15M PRN PO DECREASED GLUCOSE; Start 12/31/18 at 23:00 Dextrose (D50w Syringe) 25 ml Q15M PRN IV DECREASED GLUCOSE; Start 12/31/18 at 23:00 Dextrose (D50w Syringe) 50 ml Q15M PRN IV DECREASED GLUCOSE; Start 12/31/18 at 23:00 Glucagon (Glucagen) 1 mg Q15M PRN IM DECREASED GLUCOSE; Start 12/31/18 at 23:00 Glucose (Glutose) 15 gm Q15M PRN BUCCAL DECREASED GLUCOSE; Start 12/31/18 at 23:00 Docusate Sodium (Colace) 100 mg BID PO Last administered on 01/03/19 08:35; Admin Dose 100 MG; Start 01/01/19 at 21:00 Ibuprofen (Motrin) 600 mg Q4 PRN PO PAIN Last administered on 01/03/19 05:23; Admin Dose 600 MG; Start 01/01/19 at 17:00 Metformin HCl (Glucophage) 500 mg BID WITH MEALS PO Last administered on 01/03/19 08:36; Admin Dose 500 MG; Start 01/01/19 at 18:05 Silver Sulfadiazine (Thermazene 1% 25 Gm) 1 applic TID TOP Last administered on 01/03/19at 09:51; Admin Dose 1 APPLIC; Start 01/01/19 at 21:00 Oxycodone/ Acetaminophen (Endocet (10/ 325)) 1 tab Q6H PO Last administered on 01/03/19 08:36; Admin Dose 1 TAB; Start 01/02/19 at 02:00 KORIN PAYNE MD Jan 03, 2019 14:06
[2019-01-03] MEDS ORDERED: METF-480 PO (14:07)
[2019-01-03] MEDS ORDERED: SILV20CR12 TOP (15:24)
[2019-01-03] MEDS ORDERED: DOCU-144 PO (15:24)
[2019-01-03] MEDS ORDERED: IBUP-1542 PO (15:25)
[2019-01-03] MEDS ORDERED: metFORMIN 850 MG TAB PO SCH (18:05)
--- NOTE | 2019-01-04 18:20 | DELSUM ---
Delivery Summary A-C Datetime Report Generated by CPN: 01/04/2019 18:14 DELIVERY PERSONNEL Voip Technician: Ulrich, Thea MATERNAL INFORMATION Delivery Anesthesia: Spinal Medications in Delivery: See anesthesia record Delivery QBL (ml): 600 Placenta Cultured: No Maternal Complications: Other Other Maternal Complications: SABRA 31.7cm Type 2 diabetes EFW 4019gm LABOR SUMMARY EDC: 01/26/2019 00:00 No. Babies in Womb: 1 Attempted: No Labor Anesthesia: None LABOR INFORMATION Reason for Induction: Macrosomia; Maternal Diabetes; Polyhydramnios Onset of Labor: 12/30/2018 17:30 Oxytocin: N/A Group B Beta Strep: Not Done Antibiotics # of Doses: 2 Antibiotics Time of Last Dose: 12/31/2018 00:31 Steroids Given: None Reason Steroids Not Administered: Not Applicable MEMBRANES Membranes Rupture Method: Artificial Rupture of Membranes: 12/31/2018 00:46 Length of Rupture (hr): 0.02 Amniotic Fluid Color: Clear Amniotic Fluid Amount: Copious Amniotic Fluid Odor: Normal STAGES OF LABOR Stage 3 hr: 0 Stage 3 min: 1 Total Time in Labor hr: 7 Total Time in Labor min: 18 CSECTION DELIVERY Primary Indication: Repeat Elective CSection Urgency: Elective CSection Incidence: Repeat Labor: Labor Elective: Elective CSection Incision: Lower Uterine Transverse BABY A INFORMATION Infant Delivery Date/Time: 12/31/2018 00:47 Method of Delivery: Born in Route : No : N/A Forceps: N/A Vacuum Extraction: N/A Shoulder Dystocia : N/A SHOULDER DYSTOCIA BABY A Infant Delivery Date/Time: 12/31/2018 00:47 PRESENTATION/POSITION BABY A Presentation: Cephalic Cephalic Presentation: Vertex Breech Presentation: N/A PLACENTA INFORMATION BABY A Placenta Delivery Time : 12/31/2018 00:48 Placenta Method of Delivery: Manual Removal Placenta Status: Delivered SCORES BABY A Heart Rate 1 min: >100 bpm Resp Effort 1 min: Good Cry Reflex Irritability 1 min: Cough/Sneeze/Pulls Away Muscle Tone 1 min: Active Motion Color 1 min: Blue/Pale Resuscitation Effort 1 min: Tactile Stimulation SCORE 1 MIN: 8 Heart Rate 5 min: >100 bpm Resp Effort 5 min: Good Cry Reflex Irritability 5 min: Cough/Sneeze/Pulls Away Muscle Tone 5 min: Active Motion Color 5 min: Body [place], Extremit Blue Resuscitation Effort 5 min: Tactile Stimulation SCORE 5 MIN: 9 INFORMATION BABY A Gestational Age at Delivery: 36.2 Gestational Status: Late - 34- 36.6 Weeks Infant Outcome : Liveborn Condition : Stable Infant Sex: Female IDENTIFICATION/MEDS BABY A ID Band Number: [id number] ID Band Location: Right Leg; Left Arm Sensor Applied: Yes Sensor Number: [id number] Sensor Location : Cord Clamp Vitamin K Given : Not Given Erythromycin Given: Not Given WEIGHT/LENGTH BABY A Birthweight (gm): 4465 Infant Weight (lb): 9 Infant Weight (oz): 13 Infant Length (in): 20.50 Infant Length (cm): 52.07 CORD INFORMATION BABY A No. Cord Vessels: 3 Nuchal Cord : N/A Cord Blood Taken: Yes Infant Suction: Mouth; Nose ASSESSMENT BABY A Complications: Polyhydramnios Physical Findings at Delivery: Within Normal Limits Respirations: Grunting; Tachypnea Jewel Diameter Gauger/ALS Called : No Infant Care By: SUJEY Medrano _ Steve,RT Transferred To: Remains with Mother
== END 2019-01-03 18:00 | disposition home or self-care (01) | DRG 786 ==
LOC: OBT 15:32 → L-D 15:33 → OBT 16:18 → L-D 12-31 00:02 → PP1 12-31 04:34
PROVIDERS: ADMIT Obstetrics & Gynecology Obstetrics; ATTEND Obstetrics & Gynecology Obstetrics
PROC: 10D00Z1 Extraction of Products of Conception, Low, Open Approach (ICD-10-PCS; principal; 2018-12-31)
DX: O60.14X0 Preterm labor third trimester with preterm delivery third trimester, not applicable or unspecified (principal); O24.32 Unspecified pre-existing diabetes mellitus in childbirth; E11.65 Type 2 diabetes mellitus with hyperglycemia; O40.3XX0 Polyhydramnios, third trimester, not applicable or unspecified; O36.63X0 Maternal care for excessive fetal growth, third trimester, not applicable or unspecified; O99.214 Obesity complicating childbirth; E66.01 Morbid (severe) obesity due to excess calories; O34.219 Maternal care for unspecified type scar from previous cesarean delivery; E86.0 Dehydration; G89.18 Other acute postprocedural pain; S70.312A Abrasion, left thigh, initial encounter; X58.XXXA Exposure to other specified factors, initial encounter; Z3A.36 36 weeks gestation of pregnancy; Z37.0 Single live birth
CPT/HCPCS: 76815; 80053; 80307; 81001; 82947; 82962; 83036; 84560; 85025; 85610; 85730; 86592; 86850; 86900; 86901; 87340; 88305; 99464; G0463; J0456; J0690; J1170; J1815; J1885; J2405; J2590; J2765; J7120